=== PATIENT | male | born 1955 | race Caucasian/White ===

== ENCOUNTER → 2023-06-26 | Outpatient (CLI) | payer OTHER | END | disposition home or self-care (01) | LOC: RESCLI 13:35 | PROVIDERS: ATTEND Internal Medicine | DX: E66.9 Obesity, unspecified (principal); C61 Malignant neoplasm of prostate; E11.9 Type 2 diabetes mellitus without complications; G62.9 Polyneuropathy, unspecified; I11.9 Hypertensive heart disease without heart failure; E78.5 Hyperlipidemia, unspecified; R60.9 Edema, unspecified; J43.9 Emphysema, unspecified; G89.29 Other chronic pain; F41.1 Generalized anxiety disorder; F32.9 Major depressive disorder, single episode, unspecified; F43.10 Post-traumatic stress disorder, unspecified; K21.9 Gastro-esophageal reflux disease without esophagitis; N40.0 Benign prostatic hyperplasia without lower urinary tract symptoms; Z96.0 Presence of urogenital implants; Z88.2 Allergy status to sulfonamides; E55.9 Vitamin D deficiency, unspecified; Z87.891 Personal history of nicotine dependence; Z79.899 Other long term (current) drug therapy ==